=== PATIENT | female | born 1990 | race Caucasian/White ===

== ENCOUNTER 2019-03-09 10:26 | Inpatient (IN) | payer BC ==
[~2019-03-09] VITALS: Ht 165.1 cm; Wt 64.4 kg
[2019-03-09] MEDS ORDERED: QUET200T PO (11:07)
[2019-03-09] MEDS ORDERED: KETOROLAC 30 MG/ML VIAL IVP STA (11:11)
[2019-03-09] MEDS ORDERED: NS IV 1000 ML 1,000 ML IV ONE (11:11)
--- NOTE | 2019-03-09 11:27 | ED Abdominal Pain ---
General Chief Complaint: Abdominal/GI Problems Stated Complaint: ABD/BACK PAIN Nursing Triage Note: PT AMB TO TRIAGE WITH COMPLAINT OF RLQ PAIN THAT STARTED SATURDAY. STATES PAIN WAS CONTROLLED BY TYLENOL AND IBUPROFEN.STATES SATURDAY PAIN SPREAD TO SIDES AND BACK . STATES NOT CONTROLLED BY TYLENOL/IBUPROFEN. Sepsis Screen: No Definite Risk Source of Information: Patient Exam Limitations: No Limitations History of Present Illness Date Seen by Provider: Mar 09, 2019 Time Seen by Provider: 11:06 Initial Comments Here with report of right lower quadrant abdominal pain that started 3 days ago. She's tried to work through it but now it is worse and persistent. States that it hurts when she moves. She does have nausea and has had fever. Unable to control the pain with Tylenol and ibuprofen. Timing/Duration: 3-4 Days Severity/Quality: Moderate, Aching Location: RLQ Radiation: No Radiation Modifying Factors: Worsens With Movement; Improves With Resting Associated Symptoms: No Back Pain, No Chest Pain; Fever/Chills, Nausea/Vomiting; No Shortness of Air, No Swelling/Mass in Abdomen, No Weakness Allergies and Home Medications Allergies Coded Allergies: No Known Drug Allergies (Unverified , 03/09/19) Patient Home Medication List Home Medication List Reviewed: Yes Review of Systems Review of Systems Constitutional: see HPI EENTM: No Symptoms Reported Respiratory: Denies Cough, Denies Shortness of Air Cardiovascular: Denies Chest Pain, Denies Edema Gastrointestinal: See HPI, Abdominal Pain, Nausea Genitourinary: No Symptoms Reported Musculoskeletal: no symptoms reported Skin: no symptoms reported Psychiatric/Neurological: No Symptoms Reported All Other Systems Reviewed Negative Unless Noted: Yes Past Vrgniaf-Nipvmv-Tnfgns Hx Past Med/Social Hx: Reviewed Nursing Past Med/Soc Hx Patient Social History Alcohol Use: Denies Use Recreational Drug Use: No Smoking Status: Current Everyday Smoker Recent Foreign Travel: No Contact w/Someone Who Travel: No Recent Infectious Disease Expo: No Recent Hopitalizations: No Physical Abuse: No Sexual Abuse: No Mistreated: No Fear: No Immunizations Up To Date Tetanus Booster (TDap): Unknown PED Vaccines UTD: Yes Seasonal Allergies Seasonal Allergies: No Past Medical History Surgeries: Yes Tonsillectomy Respiratory: No Cardiac: No Neurological: No Genitourinary: No Gastrointestinal: No Musculoskeletal: No Endocrine: No HEENT: No Cancer: No Psychosocial: No Integumentary: No Blood Disorders: No Family Medical History Reviewed Nursing Family Hx Physical Exam Vital Signs Vital Signs - First Documented 03/09/19 10:57 Temp 98.4 Pulse 109 Resp 20 B/P (MAP) 131/71 (91) Pulse Ox 98 O2 Delivery Room Air Capillary Refill : Less Than 3 Seconds Height/Weight/BMI Height: 5'5.00" Weight: 130lbs. oz. 58.669996ns; BMI Method:Stated General Appearance: WD/WN, no apparent distress HEENT: PERRL/EOMI, pharynx normal Neck: full range of motion, supple Respiratory: lungs clear, normal breath sounds Cardiovascular: no murmur, tachycardia Peripheral Pulses: 2+ Dorsalis Pedis (R), 2+ Left Dors-Pedis (L), 2+ Radial Pulses (R), 2+ Radial Pulses (L) Gastrointestinal: soft; No guarding; rebound, tenderness (right lower quadrant and right upper quadrant) Extremities: non-tender, normal inspection Back: normal inspection, no CVA tenderness, no vertebral tenderness Neurologic/Psychiatric: alert, oriented x 3 Skin: normal color, warm/dry Progress/Results/Core Measures Results/Orders Lab Results Laboratory Tests Test 03/09/19 11:05 03/09/19 11:17 Range/Units Urine Color YELLOW Urine Clarity SLIGHTLY CLOUDY Urine pH 5 5-9 Urine Specific [place] 1.020 1.016-1.022 Urine Protein 2+ H NEGATIVE Urine Glucose (UA) 2+ H NEGATIVE Urine Ketones 1+ H NEGATIVE Urine Nitrite POSITIVE H NEGATIVE Urine Bilirubin NEGATIVE NEGATIVE Urine Urobilinogen NORMAL NORMAL MG/DL Urine Leukocyte Esterase 3+ H NEGATIVE Urine RBC (Auto) 4+ H NEGATIVE Urine RBC NONE /HPF Urine WBC 25-50 H /HPF Urine Squamous Epithelial Cells 10-25 H /HPF Urine Crystals NONE /LPF Urine Bacteria FEW H /HPF Urine Casts NONE /LPF Urine Mucus NEGATIVE /LPF Urine Culture Indicated YES White Blood Count 18.7 H 4.3-11.0 10^3/uL Red Blood Count 4.18 L 4.35-5.85 10^6/uL Hemoglobin 13.3 11.5-16.0 G/DL Hematocrit 39 35-52 % Mean Corpuscular Volume 94 80-99 FL Mean Corpuscular Hemoglobin 32 25-34 PG Mean Corpuscular Hemoglobin Concent 34 32-36 G/DL Red Cell Distribution Width 13.4 10.0-14.5 % Platelet Count 277 130-400 10^3/uL Mean Platelet Volume 10.7 H 7.4-10.4 FL Neutrophils (%) (Auto) 74 42-75 % Lymphocytes (%) (Auto) 11 L 12-44 % Monocytes (%) (Auto) 14 H 0-12 % Eosinophils (%) (Auto) 1 0-10 % Basophils (%) (Auto) 0 0-10 % Neutrophils # (Auto) 13.8 H 1.8-7.8 X 10^3 Lymphocytes # (Auto) 2.0 1.0-4.0 X 10^3 Monocytes # (Auto) 2.7 H 0.0-1.0 X 10^3 Eosinophils # (Auto) 0.2 0.0-0.3 10^3/uL Basophils # (Auto) 0.0 0.0-0.1 10^3/uL Neutrophils % (Manual) 70 % Lymphocytes % (Manual) 13 % Monocytes % (Manual) 10 % Eosinophils % (Manual) 1 % Band Neutrophils 6 % Blood Morphology Comment NORMAL Sodium Level 138 135-145 MMOL/L Potassium Level 3.4 L 3.6-5.0 MMOL/L Chloride Level 109 H 98-107 MMOL/L Carbon Dioxide Level 21 21-32 MMOL/L Anion Gap 8 5-14 MMOL/L Blood Urea Nitrogen 10 7-18 MG/DL Creatinine 0.75 0.60-1.30 MG/DL Estimat Glomerular Filtration Rate > 60 BUN/Creatinine Ratio 13 Glucose Level 103 70-105 MG/DL Calcium Level 8.9 8.5-10.1 MG/DL Corrected Calcium 9.2 8.5-10.1 MG/DL Total Bilirubin 0.4 0.1-1.0 MG/DL Aspartate Amino Transf (AST/SGOT) 12 5-34 U/L Alanine Aminotransferase (ALT/SGPT) 10 0-55 U/L Alkaline Phosphatase 78 40-136 U/L Total Protein 6.6 6.4-8.2 GM/DL Albumin 3.6 3.2-4.5 GM/DL My Orders Orders - LILIAM ADLER MD Cbc With Automated Diff (03/09/19 11:11) Comprehensive Metabolic Panel (03/09/19 11:11) Hs C Reactive Protein (03/09/19 11:11) Ua Culture If Indicated (03/09/19 11:11) Urine Bedside (03/09/19 11:11) Ed Iv/Invasive Line Start (03/09/19 11:11) Ns Iv 1000 Ml (Sodium Chloride 0.9%) (03/09/19 11:11) Ketorolac Injection (Toradol Injection) (03/09/19 11:11) Ct Abd/Pelv W (Appendicitis) (03/09/19 11:11) Iohexol Injection (Omnipaque 350 Mg/Ml 1 (03/09/19 11:30) Received Contrast (Hold Metformin- Contr (03/09/19 11:30) Ns (Ivpb) (Sodium Chloride 0.9% Ivpb Bag (03/09/19 11:30) Manual Differential (03/09/19 11:17) Urine Culture (03/09/19 11:05) Ceftriaxone For Iv Use (Rocephin For I (03/09/19 12:30) Lactic Acid Analyzer (03/09/19 12:27) Blood Culture (03/09/19 12:27) Medications Given in ED Current Medications Medications Dose Ordered Sig/Gilberto Route Start Time Stop Time Status Last Admin Dose Admin Iohexol 100 ml ONCE ONCE IV 03/09/19 11:30 03/09/19 11:31 DC 03/09/19 11:47 75 ML Sodium Chloride 100 ml ONCE ONCE IV 03/09/19 11:30 03/09/19 11:31 DC 03/09/19 11:47 80 ML Sodium Chloride 1,000 ml @ 0 mls/hr Q0M ONCE IV 03/09/19 11:11 03/09/19 11:13 DC 03/09/19 12:10 1,000 MLS/HR Vital Signs/I&O 03/09/19 10:57 Temp 98.4 Pulse 109 Resp 20 B/P (MAP) 131/71 (91) Pulse Ox 98 O2 Delivery Room Air Blood Pressure Mean: 91 Progress Progress Note : Progress Note Seen and evaluated. IV, labs, UA, UCG, normal saline 1 L bolus, Toradol [address] abdomen and pelvis appendicitis protocol ordered. Monitor patient. 1225: CT shows pyelonephritis and UA positive for urinary tract infection. Blood cultures and lactic acid ordered as well as Rocephin. Rocephin will be given after blood cultures drawn. Findings concerns discussed with the patient. Admission is indicated due to pyelonephritis. She agrees. Discussed with Dr. ORELLANA, on-call for [facility] and he accepts patient for admission, inpatient status. Diagnostic Imaging Diagonstic Imaging: CT Plain Films/CT/US/NM/MRI: abdomen, pelvis Comments [facility], [place] NAME: DARLINE ERNST [facility] REC#: [id number] PT STATUS: REG ER : 1990 PHYSICIAN: LILIAM ADLER MD ADMIT DATE: 03/09/19/ER Draft Date of Exam:03/09/19 CT ABD/PELV W (APPENDICITIS) PROCEDURE: CT abdomen and pelvis with contrast, rule out appendicitis. TECHNIQUE: Multiple contiguous axial images were obtained through the abdomen and pelvis after the administration of intravenous contrast. INDICATION: Pain. COMPARISON: None available. FINDINGS: Bilateral dependent atelectasis. The liver, spleen, adrenal glands, and pancreas are unremarkable. Gallbladder is unremarkable. Ill-defined hypodensities are identified associated with the right kidney, including within the superior and inferior pole. These appear to be associated with the cortex extending centrally. These do not demonstrate typical appearance of cyst. Minimal right perinephric fat stranding. The kidneys and ureters are otherwise unremarkable. No aneurysmal dilatation of abdominal aorta. The urinary bladder is decompressed, therefore, not well evaluated. Uterus and adnexal structures are unremarkable. The appendix is not definitely visualized, though there are no secondary signs of acute appendicitis. No bowel obstruction or pneumatosis. No significant adenopathy or free air within abdomen or pelvis. Trace free fluid within the lower pelvis. No acute osseous abnormality. IMPRESSION: Abnormal appearance of the right kidney most likely relates to an underlying infectious etiology such as pyelonephritis. Recommend correlation with urinary analysis. Underlying mass lesion is not totally excluded though felt less likely. Renal ultrasound is recommended one month after appropriate therapy to ensure there is no underlying solid mass lesion. The appendix is not definitely visualized, though no secondary signs of acute appendicitis are seen. Additional findings as above. Dictated on workstation # [id number] Dict: 03/09/19 1155 Trans: 03/09/19 1205 [id number] Interpreted by: HOMER ESCALANTE MD Electronically signed by: Reviewed: Reviewed by Me Departure Communication (Admissions) Time/Spoke to Admitting Phy: 12:25 Impression Primary Impression: Pyelonephritis Additional Impression: Urinary tract infection Qualified Codes: N30.00 - Acute cystitis without hematuria Disposition: ADMITTED INPATIENT Condition: Stable Admissions Decision to Admit Reason: Admit from ER (General) Decision to Admit/Date: Mar 09, 2019 Time/Decision to Admit Time: 12:25 Departure-Patient Inst. Referrals: NO,LOCAL PHYSICIAN (PCP/Family) Primary Care Physician LILIAM ADLER MD Mar 09, 2019 11:27
[2019-03-09] MEDS ORDERED: NS 100 ML (IVPB) BAG IV ONE (11:30)
[2019-03-09] MEDS ORDERED: IOHEXOL 350 MG/ML 100 ML (OMNIPAQUE 350) VIAL IV ONE (11:30)
[2019-03-09 11:31] LABS: BILIRUBIN,URINE NEGATIVE (NEGATIVE); CLARITY,URINE SLIGHTLY CLOUDY; COLOR,URINE YELLOW; GLUCOSE, URINE (UA) 2+ (NEGATIVE); KETONES,URINE 1+ (NEGATIVE); LEUKOCYTE ESTERASE ,URINE 3+ (NEGATIVE); NITRITE,URINE POSITIVE (NEGATIVE); PH,URINE 5 (5-9); PROTEIN,URINE 2+ (NEGATIVE); UROBILINOGEN,URINE NORMAL (NORMAL)
[2019-03-09 11:39] LABS: BASOPHILS % (AUTO) 0 % (0-10); EOSINOPHILS # (AUTO) 0.2 10^3/uL (0.0-0.3); EOSINOPHILS % (AUTO) 1 % (0-10); HEMATOCRIT 39 % (35-52); HEMOGLOBIN 13.3 G/DL (11.5-16.0); LYMPHOCYTES % (AUTO) 11 % (12-44); MEAN CORPUSCULAR HEMOGLOBIN 32 PG (25-34); MEAN CORPUSCULAR HGB CONC 34 G/DL (32-36); MEAN CORPUSCULAR VOLUME 94 FL (80-99); MEAN PLATELET VOLUME 10.7 FL (7.4-10.4); MONOCYTES # (AUTO) 2.7 X 10^3 (0.0-1.0); MONOCYTES % (AUTO) 14 % (0-12); NEUTROPHILS # (AUTO) 13.8 X 10^3 (1.8-7.8); NEUTROPHILS % (AUTO) 74 % (42-75); PLATELET COUNT 277 10^3/uL (130-400); RED CELL DISTRIBUTION WIDTH 13.4 % (10.0-14.5); WHITE BLOOD COUNT 18.7 10^3/uL (4.3-11.0)
[2019-03-09 11:43] LABS: BACTERIA,URINE FEW /HPF; WBC,URINE 25-50 /HPF
[2019-03-09] MEDS: HOLD METFORMIN - RECEIVED CONTRAST 20 ML VIAL IV SCH ×2 (11:48→14:45)
[2019-03-09 11:50] LABS: ALANINE AMINOTRANSFERASE 10 U/L (0-55); ALBUMIN 3.6 GM/DL (3.2-4.5); ALKALINE PHOSPHATASE 78 U/L (40-136); BILIRUBIN,TOTAL 0.4 MG/DL (0.1-1.0); BUN/CREATININE RATIO 13; CALCIUM 8.9 MG/DL (8.5-10.1); CARBON DIOXIDE 21 MMOL/L (21-32); CHLORIDE 109 MMOL/L (98-107); CREATININE SERUM 0.75 MG/DL (0.60-1.30); GFR ESTIMATED > 60; GLUCOSE 103 MG/DL (70-105); POTASSIUM 3.4 MMOL/L (3.6-5.0); SODIUM 138 MMOL/L (135-145); TOTAL PROTEIN 6.6 GM/DL (6.4-8.2)
--- NOTE | 2019-03-09 12:05 | Diagnostic Imaging Report ---
PROCEDURE: CT abdomen and pelvis with contrast, rule out appendicitis. TECHNIQUE: Multiple contiguous axial images were obtained through the abdomen and pelvis after the administration of intravenous contrast. INDICATION: Pain. COMPARISON: None available. FINDINGS: Bilateral dependent atelectasis. The liver, spleen, adrenal glands, and pancreas are unremarkable. Gallbladder is unremarkable. Ill-defined hypodensities are identified associated with the right kidney, including within the superior and inferior pole. These appear to be associated with the cortex extending centrally. These do not demonstrate typical appearance of cyst. Minimal right perinephric fat stranding. The kidneys and ureters are otherwise unremarkable. No aneurysmal dilatation of abdominal aorta. The urinary bladder is decompressed, therefore, not well evaluated. Uterus and adnexal structures are unremarkable. The appendix is not definitely visualized, though there are no secondary signs of acute appendicitis. No bowel obstruction or pneumatosis. No significant adenopathy or free air within abdomen or pelvis. Trace free fluid within the lower pelvis. No acute osseous abnormality. IMPRESSION: Abnormal appearance of the right kidney most likely relates to an underlying infectious etiology such as pyelonephritis. Recommend correlation with urinary analysis. Underlying mass lesion is not totally excluded though felt less likely. Renal ultrasound is recommended one month after appropriate therapy to ensure there is no underlying solid mass lesion. The appendix is not definitely visualized, though no secondary signs of acute appendicitis are seen. Additional findings as above. Dictated by: Dictated on workstation # [id number]
[2019-03-09 12:25] LABS: BAND NEUTROPHILS 6 %; EOSINOPHILS % (MANUAL) 1 %; LYMPHOCYTES % (MANUAL) 13 %; MONOCYTES % (MANUAL) 10 %; NEUTROPHILS % (MANUAL) 70 %; RBC MORPH NORMAL
[2019-03-09] MEDS ORDERED: cefTRIAXone FOR IV USE 1,000 MG in WATER (STERILE) FOR INJECTION 10 ML IV ONE (12:30)
[2019-03-09] MEDS ORDERED: cefTRIAXone 1,000 MG IV (ROCEPHIN) VIAL ONE (13:36)
[2019-03-09] MEDS ORDERED: WATER (STERILE) FOR INJECTION 10 ML ONE (13:36)
[2019-03-09 14:19] VITALS: BP 108/59
[2019-03-09] MEDS ORDERED: NS IV 1000 ML 1,000 ML ONE (14:25)
[2019-03-09 16:00] VITALS: BP 107/68
[2019-03-09] MEDS ORDERED: IBUPROFEN 600 MG (MOTRIN) TAB PO ONE (17:32)
[2019-03-09] MEDS ORDERED: IBUPROFEN 600 MG (MOTRIN) TAB PO SCH (17:45)
[2019-03-09] MEDS ORDERED: ONDANSETRON 4 MG/2 ML (SDV) Z0FRAN IVP PRN (17:45)
--- NOTE | 2019-03-09 19:50 | NUR ---
CALLED DR. DRISCOLL AND INFORMED HIM THAT PATIENT TAKES SEROQUEL 200MG HS AND WAS REQUESTING IT THIS EVENING. RECEIVED ORDER TO RESTART SEROQUEL. SEE EMAR FOR DETAILS
[2019-03-09 20:00] VITALS: BP 111/70
[2019-03-09] MEDS ORDERED: QUEtiapine 200 MG (SEROquel) TAB IMMEDIATE RELEASE PO SCH (21:00)
[2019-03-09] MEDS: IBUPROFEN 600 MG (MOTRIN) TAB PO SCH (21:30)
[2019-03-09] MEDS ORDERED: IBUPROFEN 600 MG (MOTRIN) TAB PO PRN (21:30)
[2019-03-09] MEDS: ACETAMINOPHEN 500 MG TAB (TYLENOL) PO PRN (21:42)
[2019-03-09] MEDS: NS IV 1000 ML 1,000 ML IV SCH (21:43)
[2019-03-10] VITALS: BP 90/72
[2019-03-10 04:00] VITALS: BP 99/58
[2019-03-10 05:23] LABS: BASOPHILS % (AUTO) 0 % (0-10); EOSINOPHILS # (AUTO) 0.2 10^3/uL (0.0-0.3); EOSINOPHILS % (AUTO) 1 % (0-10); HEMATOCRIT 36 % (35-52); HEMOGLOBIN 11.8 G/DL (11.5-16.0); LYMPHOCYTES # (AUTO) 2.9 X 10^3 (1.0-4.0); LYMPHOCYTES % (AUTO) 20 % (12-44); MEAN CORPUSCULAR HEMOGLOBIN 31 PG (25-34); MEAN CORPUSCULAR HGB CONC 33 G/DL (32-36); MEAN CORPUSCULAR VOLUME 96 FL (80-99); MONOCYTES # (AUTO) 2.1 X 10^3 (0.0-1.0); MONOCYTES % (AUTO) 14 % (0-12); NEUTROPHILS # (AUTO) 9.8 X 10^3 (1.8-7.8); NEUTROPHILS % (AUTO) 65 % (42-75); PLATELET COUNT 253 10^3/uL (130-400); RED CELL DISTRIBUTION WIDTH 13.5 % (10.0-14.5)
[2019-03-10 05:39] LABS: BUN/CREATININE RATIO 10; CALCIUM 8.1 MG/DL (8.5-10.1); CARBON DIOXIDE 19 MMOL/L (21-32); CHLORIDE 113 MMOL/L (98-107); CREATININE SERUM 0.63 MG/DL (0.60-1.30); GFR ESTIMATED > 60; GLUCOSE 101 MG/DL (70-105); SODIUM 140 MMOL/L (135-145)
[2019-03-10] MEDS: IBUPROFEN 600 MG (MOTRIN) TAB PO SCH ×2 (06:20→12:54)
[2019-03-10] MEDS: NS IV 1000 ML 1,000 ML IV SCH (06:20)
[2019-03-10 08:00] VITALS: BP 120/62
[2019-03-10] MEDS: ACETAMINOPHEN 500 MG TAB (TYLENOL) PO PRN (08:54)
[2019-03-10] MEDS ORDERED: NICOTINE 14 MG (NICODERM) PATCH TD SCH (09:00)
[2019-03-10] MEDS ORDERED: FOLI200T11 PO (10:04)
[2019-03-10] MEDS ORDERED: CETI1TAB61 PO (10:04)
[2019-03-10] MEDS ORDERED: ACET-93 PO (10:04)
[2019-03-10] MEDS ORDERED: IBUP-2055 PO (10:04)
--- NOTE | 2019-03-10 10:06 | NUR ---
SPOKE WITH PT WELL CALLING [facility] TO COMPLETE THE MED REC. OTC MEDS: ZYRTEC D: 1 DAILY ACETAMINOPHEN 500M TS Q 8 H PRN IBUPROFEN 200M TS Q 8 H PRN WOMENS 1 A DAY CHEWABLE: 1 DAILY
[2019-03-10 12:00] VITALS: BP 128/80
[2019-03-10] MEDS ORDERED: cefTRIAXone FOR IV USE 1,000 MG in WATER (STERILE) FOR INJECTION 10 ML IV ONE (12:30)
[2019-03-10] MEDS ORDERED: CIPR-225 PO (14:18)
--- NOTE | 2019-03-10 14:22 | Short Stay Summary ---
NILSON GUERRERO,MED STUDENT 03/10/19 1422: HPI History of Present Illness: 28 yo female presents with RLQ pain that radiates to the right lower back. The symptoms began 03/05/19 and continued to worsen over the weekend. 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 At that time she had RLQ pain, back pain, N/V, and fever. She states the N/V and fever have subsided and the RLQ pain is less than half of what it was yesterday at admission. She denies ever having urinary symptoms including dysuria, hesitancy, or polyuria. She has continued to eat and drink as normal. Source: patient Exam Limitations: no limitations Date seen by provider: Mar 10, 2019 Time Seen by Provider: 12:45 Attending Physician Kurtis Barton MD PCP [facility] Consult Date of Admission Mar 09, 2019 at 12:33 Home Medications Home Medications Reviewed patient Home Medication Reconciliation performed by pharmacy medication reconciliations technician preventative medicine and/or nursing. Patients Allergies have been reviewed. Allergies Coded Allergies: No Known Drug Allergies (Unverified , 03/09/19) YGT-Dwebmc-Rneyvy Hx Patient Social History Number of Children: 1 Employed/Student: employed (at [employer]) Alcohol Use: Denies Use Recreational Drug Use: No Smoking Status: Current Everyday Smoker Type Used: Cigarettes Recent Foreign Travel: No Contact w/other who traveled: No Recent Hopitalizations: No Recent Infectious Disease Expo: No Immunizations Up To Date Tetanus Booster (TDap): Unknown Past Medical History PMH is unremarkable other than vaginal delivery Family Medical History Family History: Patient reports no known family medical history. Review of Systems ([facility]) Constitutional: chills, fever Respiratory: No cough, No hemoptysis, No short of breath Cardiovascular: No chest pain, No syncope Gastrointestinal: abdominal pain (RLQ that radiates to right lower back) Genitourinary: No discharge, No dysuria, No frequency, No hematuria, No hesitancy Musculoskeletal: back pain Skin: No rash Reviewed Test Results Reviewed Test Results Lab Laboratory Tests 03/09/19 11:05: Urine Color YELLOW, Urine Clarity SLIGHTLY CLOUDY, Urine pH 5, Urine Specific [place] 1.020, Urine Protein 2+H, Urine Glucose (UA) 2+H, Urine Ketones 1+H, Urine Nitrite POSITIVEH, Urine Bilirubin NEGATIVE, Urine Urobilinogen NORMAL, Urine Leukocyte Esterase 3+H, Urine RBC (Auto) 4+H, Urine RBC NONE, Urine WBC 25-50H, Urine Squamous Epithelial Cells 10-25H, Urine Crystals NONE, Urine Bacteria FEWH, Urine Casts NONE, Urine Mucus NEGATIVE, Urine Culture Indicated YES 03/09/19 11:17: White Blood Count 18.7H, Red Blood Count 4.18L, Hemoglobin 13.3, Hematocrit 39, Mean Corpuscular Volume 94, Mean Corpuscular Hemoglobin 32, Mean Corpuscular Hemoglobin Concent 34, Red Cell Distribution Width 13.4, Platelet Count 277, Mean Platelet Volume 10.7H, Neutrophils (%) (Auto) 74, Lymphocytes (%) (Auto) 11L, Monocytes (%) (Auto) 14H, Eosinophils (%) (Auto) 1, Basophils (%) (Auto) 0, Neutrophils # (Auto) 13.8H, Lymphocytes # (Auto) 2.0, Monocytes # (Auto) 2.7H, Eosinophils # (Auto) 0.2, Basophils # (Auto) 0.0, Neutrophils % (Manual) 70, Lymphocytes % (Manual) 13, Monocytes % (Manual) 10, Eosinophils % (Manual) 1, Band Neutrophils 6, Blood Morphology Comment NORMAL, Sodium Level 138, Potassium Level 3.4L, Chloride Level 109H, Carbon Dioxide Level 21, Anion Gap 8, Blood Urea Nitrogen 10, Creatinine 0.75, Estimat Glomerular Filtration Rate > 60, BUN/Creatinine Ratio 13, Glucose Level 103, Calcium Level 8.9, Corrected Calcium 9.2, Total Bilirubin 0.4, Aspartate Amino Transf (AST/SGOT) 12, Alanine Am inotransferase (ALT/SGPT) 10, Alkaline Phosphatase 78, C-Reactive Protein High Sensitivity 27.41H, Total Protein 6.6, Albumin 3.6 03/09/19 12:34: Lactic Acid Level 0.44L 03/10/19 04:35: White Blood Count 15.0H, Red Blood Count 3.76L, Hemoglobin 11.8, Hematocrit 36, Mean Corpuscular Volume 96, Mean Corpuscular Hemoglobin 31, Mean Corpuscular He moglobin Concent 33, Red Cell Distribution Width 13.5, Platelet Count 253, Mean Platelet Volume 11.0H, Neutrophils (%) (Auto) 65, Lymphocytes (%) (Auto) 20, Monocytes (%) (Auto) 14H, Eosinophils (%) (Auto) 1, Basophils (%) (Auto) 0, Neutrophils # (Auto) 9.8H, Lymphocytes # (Auto) 2.9, Monocytes # (Auto) 2.1H, Eosinophils # (Auto) 0.2, Basophils # (Auto) 0.0, Sodium Level 140, Potassium Level 4.0, Chloride Level 113H, Carbon Dioxide Level 19L, Anion Gap 8, Blood Urea Nitrogen 6L, Creatinine 0.63, Estimat Glomerular Filtration Rate > 60, BUN/Creatinine Ratio 10, Glucose Level 101, Calcium Level 8.1L Microbiology 03/09/19 Urine Culture - Preliminary, Resulted Gram Negative [facility] Abnormal appearance of the right kidney most likely relates to an underlying infectious etiology such as pyelonephritis. Recommend correlation with urinary analysis. Underlying mass lesion is not totally excluded though felt less likely. Renal ultrasound is recommended one month after appropriate therapy to ensure there is no underlying solid mass lesion. Physical Exam-([facility]) Physical Exam Vital Signs VS - Last 72 Hours, by Label 03/09/19 03/09/19 03/09/19 03/09/19 10:57 14:05 14:19 15:28 Temp 98.4 98.1 Pulse 109 88 86 Resp 20 20 20 B/P (MAP) 131/71 (91) 112/67 (82) 108/59 Pulse Ox 98 98 95 95 O2 Delivery Room Air Room Air Room Air Room Air 03/09/19 03/09/19 03/09/19 03/10/19 16:00 20:00 20:00 00:00 Temp 99.1 98.8 99.3 Pulse 94 90 92 Resp 20 20 18 B/P (MAP) 107/68 (81) 111/70 (84) 90/72 (78) Pulse Ox 100 98 98 98 O2 Delivery Room Air Room Air Room Air Room Air 03/10/19 03/10/19 03/10/19 03/10/19 04:00 08:00 08:50 12:00 Temp 97.1 97.6 98.2 Pulse 84 89 76 Resp 16 20 20 B/P (MAP) 99/58 (72) 120/62 (81) 128/80 (96) Pulse Ox 97 98 98 O2 Delivery Room Air Room Air Room Air Room Air Capillary Refill : Less Than 3 SecondsLess Than 3 Seconds General Appearance: WD/WN, no apparent distress HEENT: PERRL/EOMI Respiratory: chest non-tender, lungs clear, normal breath sounds, no respiratory distress, no accessory muscle use Cardiovascular: regular rate, rhythm, no edema, no murmur Gastrointestinal: normal bowel sounds, soft, no organomegaly; No distended, No guarding, No rebound; tenderness (at RLQ) Back: no CVA tenderness Extremities: normal range of motion Neurologic/Psychiatric: alert, normal mood/affect, oriented x 3 Skin: normal color, warm/dry Short Stay Diagnosis Discharge Diagnosis-Short Stay Admission Diagnosis Pyelonephritis Final Discharge Diagnosis Pyleonephritis Conclusion Plan see assessment and plan Clinical Quality Measures DVT/VTE Risk/Contraindication: Risk Factor Score Per Nursin RFS Level Per Nursing on Admit: 2=Moderate Assessment/Plan Assessment/Plan Assessment & Plan Diagnosis of pyelonephritis. Discharge to home today. Take oral antibiotic as directed (ciprofloxacin). Advised patient to hold her seroquel while taking the antibiotic due to adverse effects. Follow-up with PCP on as scheduled. Discussed with patient the susceptibility results will not be available upon discharge and she will be called in the upcoming days to tell her to either co ntinue or switch antibiotic regimen. She verbalized understanding and is to call if worsening symptoms. Follow-up renal US in 1 month KURTIS BARTON MD 03/11/192057: Home Medications Allergies Coded Allergies: No Known Drug Allergies (Unverified , 03/09/19) MIY-Aoqkub-Abxeiu Hx Family Medical History Family History: Patient reports no known family medical history. Supervisory-Addendum Brief Verification & Attestation Participated in pt care: history, MDM, physical Personally performed: exam, history, MDM Care discussed with: Medical Student Procedures: n/a Verification and Attestation of Medical Student E/M Service A medical student performed and documented this service in my presence. I reviewed and verified all information documented by the medical student and made modifications to such information, when appropriate. I personally performed the physical exam and medical decision making. Kurtis Barton, Mar 11, 2019,20:58 NILSON GUERRERO MED STUDENT Mar 10, 2019 14:22 KURTIS BARTON MD Mar 11, 2019 20:58
== END 2019-03-10 15:05 | disposition home or self-care (01) | DRG 690 ==
LOC: EDUNIT# 10:26 → ER 10:27 → 4TH 12:33
PROVIDERS: ADMIT Internal Medicine; ATTEND Family Medicine
DX: N12 Tubulo-interstitial nephritis, not specified as acute or chronic (principal); F17.210 Nicotine dependence, cigarettes, uncomplicated
CPT/HCPCS: 36415; 74177; 80048; 80053; 81000; 83605; 84703; 85007; 85025; 85027; 86141; 87040; 87077; 87088; 87186; 96361; 96365; 96375

== ENCOUNTER 2019-10-04 13:26 | Emergency (ER) | payer BC ==
[~2019-10-04] VITALS: Ht 165 cm; Wt 58.9 kg
[~2019-10-04 13:26] MED LIST: ACET-93 PO; CETI1TAB61 PO; CIPR-225 PO; FOLI200T11 PO; IBUP-2473 PO; QUET200T PO
--- OUTSIDE RECORDS SUMMARY | 2019-10-04 13:32 | XMS REPORT | Continuity of Care Document ---
Author Organization Unknown Address Unknown Phone Unavailable Allergies Active Description Code Type Severity Reaction Onset Reported/Identified Relationship to Patient Clinical Status Yes No Known Drug Allergies [id number] Drug Allergy Unknown N/A 03/09/2019 Medications There is no data. Problems Date Dx Coded Attending Type Code Diagnosis Diagnosed By 03/10/2019 THANIA MORALES, KURTIS Pulliam Ot F17.210 NICOTINE DEPENDENCE, CIGARETTES, UNCOMPL 03/10/2019 THANIA MORALES, KURTIS Pulliam Ot N12 TUBULO-INTERSTITIAL NEPHRITIS, NOT SPCF Procedures There is no data. Results Test Result Range Complete urinalysis with reflex to cultu re - 03/09/19 11:05 Urine color determination YELLOW NRG Urine clarity determination SLIGHTLY CLOUDY NRG Urine pH measurement by test strip 5 5-9 Specific gravity of urine by test strip 1.020 1.016-1.022 Urine protein assay by test strip, semi-quantitative 2+ NEGATIVE Urine glucose detection by automated test strip 2+ NEGATIVE Erythrocytes detection in urine sediment by light micr oscopy 4+ NEGATIVE Urine ketones detection by automated test strip 1+ NEGATIVE Urine nitrite detection by test strip POSITIVE NEGATIVE Urine total bilirubin detection by test strip NEGA TIVE NEGATIVE Urine urobilinogen measurement by automated test strip (mass/volume) NORMAL NORMAL Urine leukocyte esterase detection by dipstick 3+ NEGATIVE Automated urine sediment erythrocyte cou nt by microscopy (number/high power field) NONE NRG Automated urine sediment leukocyte count by microscopy (number/high power field) [HPF] NRG Bacteria detection in urine sediment by light microsco py FEW NRG Squamous epithelial cells detection in u rine sediment by light microscopy 10-25 NRG Crystals detection in urine sediment by light microsco py NONE NRG Casts detection in urine sediment by light microscopy NONE NRG Mucus detection in urine sediment by light microscopy NEGATIVE NRG Complete urinalysis with reflex to culture YES NRG Bacterial urine culture - 03/09/19 11:05 Bacterial urine culture [id number] NRG COLONY COUNT >100,000/ML NRG FTX;REPORTABLE SUSCEPTIBILITY REPORTED 03/11/19 10:3 0 NRG Dirithromycin susceptibility test by dis k diffusion - 03/09/19 11:05 Gentamicin susceptibility test by minimum inhibitory c oncentration <= NRG Trimethoprim/sulfamethoxazole susceptibi lity test by minimum inhibitoryconcentration <= NRG Levofloxacin susceptibility test by minimum inhibitory concentration <= NRG Ampicillin susceptibility test by minimum inhibitory c oncentration > NRG Cefazolin susceptibility test by minimum inhibitory co ncentration 2 NRG Ceftriaxone susceptibility test by minimum inhibitory concentration <= NRG Ciprofloxacin susceptibility test by minimum inhibitor y concentration <= NRG Meropenem susceptibility test by minimum inhibitory co ncentration <= NRG Nitrofurantoin susceptibility test by mi nimum inhibitory concentration <= NRG Amoxicillin and clavulanate potassium susc CAITLYN = NRG Complete blood count (CBC) with automate d white blood cell (WBC) differential - 03/09/19 11:17 Blood leukocytes automated count (number/volume) 18.7 10*3/uL 4.3-11.0 Blood erythrocytes automated count (number/volume) 4.18 10*6/uL 4.35-5.85 Venous blood hemoglobin measurement (mass/volume) 13.3 g/dL 11.5-16.0 Blood hematocrit (volume fraction) 39 % 35-52 Automated erythrocyte mean corpuscular volume 94 [ foz_us] 80-99 Automated erythrocyte mean corpuscular h emoglobin (mass per erythrocyte) 32 pg 25-34 Automated erythrocyte mean corpuscular h emoglobin concentration measurement (mass/volume) 34 g/dL 32-36 Automated erythrocyte distribution width ratio 13. 4 % 10.0- 14.5 Automated blood platelet count (count/volume) 277 10*3/uL 130-400 Automated blood platelet mean volume measurement 10.7 [foz_us] 7.4-10.4 Automated blood neutrophils/100 leukocytes 74 % 42-75 Automated blood lymphocytes/100 leukocytes 11 % 12-44 Blood monocytes/100 leukocytes 14 % 0-12 Automated blood eosinophils/100 leukocytes 1 % 0-10 Automated blood basophils/100 leukocytes 0 % 0-10 Blood neutrophils automated count (number/volume) 13.8 10*3 1.8-7.8 Blood lymphocytes automated count (number/volume) 2.0 10*3 1.0-4.0 Blood monocytes automated count (number/volume) 2. 7 10*3 0.0-1.0 Automated eosinophil count 0.2 10*3/uL 0 .0-0.3 Automated blood basophil count (count/volume) 0.0 10*3/uL 0.0-0.1 Comprehensive metabolic panel - 03/09/19 11:17 Serum or plasma sodium measurement (moles/volume) 138 mmol/L 135-145 Serum or plasma potassium measurement (moles/volume) 3.4 mmol/L 3.6-5.0 Serum or plasma chloride measurement (moles/volume) 109 mmol/L 98-107 Carbon dioxide 21 mmol/L 21-32 Serum or plasma anion gap determination (moles/volume) 8 mmol/L 5-14 Serum or plasma urea nitrogen measurement (mass/volume ) 10 mg/dL 7-18 Serum or plasma creatinine measurement (mass/volume) 0.75 mg/dL 0.60-1.30 Serum or plasma urea nitrogen/creatinine mass ratio 13 NRG Serum or plasma creatinine measurement w ith calculation of estimated glomerular filtration rate > NRG Serum or plasma glucose measurement (mass/volume) 103 mg/dL 70-105 Serum or plasma calcium measurement (mass/volume) 8.9 mg/dL 8.5-10.1 Serum or plasma total bilirubin measurement (mass/volu me) 0.4 mg/dL 0.1-1.0 Serum or plasma alkaline phosphatase benjamin surement (enzymatic activity/volume) 78 U/L 40-136 Serum or plasma aspartate aminotransfera se measurement (enzymatic activity/volume) 12 U/L 5-34 Serum or plasma alanine aminotransferase measurement (enzymatic activity/volume) 10 U/L 0-55 Serum or plasma protein measurement (mass/volume) 6.6 g/dL 6.4-8.2 Serum or plasma albumin measurement (mass/volume) 3.6 g/dL 3.2-4.5 CALCIUM CORRECTED 9.2 mg/dL 8.5-10.1 Manual absolute plasma cell count - 08/26 11:17 Blood monocytes/100 leukocytes 10 % NRG Manual blood segmented neutrophils/100 leukocytes 70 % NRG Blood band neutrophils/100 leukocytes 6 % NRG Manual blood lymphocytes/100 leukocytes 13 % NRG Manual eosinophils/100 leukocytes in nose 1 % NRG Blood erythrocyte morphology finding identification NORMAL NRG Serum or plasma C reactive protein measu rement (mass/volume) - 03/09/19 11:17 Serum or plasma C reactive protein measurement (mass/v olume) 27.41 mg/dL 0.00-0.50 Blood lactic acid measurement (moles/vol ume) - 03/09/19 12:34 Blood lactic acid measurement (moles/volume) 0.44 mmol/L 0.50-2.00 Bacterial blood culture - 03/09/19 12:34 Bacterial blood culture NG NRG Bacterial blood culture - 03/09/19 12:47 Bacterial blood culture NG NRG Complete blood count (CBC) with automate d white blood cell (WBC) differential - 03/10/19 04:35 Blood leukocytes automated count (number/volume) 15.0 10*3/uL 4.3-11.0 Blood erythrocytes automated count (number/volume) 3.76 10*6/uL 4.35-5.85 Venous blood hemoglobin measurement (mass/volume) 11.8 g/dL 11.5-16.0 Blood hematocrit (volume fraction) 36 % 35-52 Automated erythrocyte mean corpuscular volume 96 [ foz_us] 80-99 Automated erythrocyte mean corpuscular h emoglobin (mass per erythrocyte) 31 pg 25-34 Automated erythrocyte mean corpuscular h emoglobin concentration measurement (mass/volume) 33 g/dL 32-36 Automated erythrocyte distribution width ratio 13. 5 % 10.0- 14.5 Automated blood platelet count (count/volume) 253 10*3/uL 130-400 Automated blood platelet mean volume measurement 11.0 [foz_us] 7.4-10.4 Automated blood neutrophils/100 leukocytes 65 % 42-75 Automated blood lymphocytes/100 leukocytes 20 % 12-44 Blood monocytes/100 leukocytes 14 % 0-12 Automated blood eosinophils/100 leukocytes 1 % 0-10 Automated blood basophils/100 leukocytes 0 % 0-10 Blood neutrophils automated count (number/volume) 9.8 10*3 1.8-7.8 Blood lymphocytes automated count (number/volume) 2.9 10*3 1.0-4.0 Blood monocytes automated count (number/volume) 2. 1 10*3 0.0-1.0 Automated eosinophil count 0.2 10*3/uL 0 .0-0.3 Automated blood basophil count (count/volume) 0.0 10*3/uL 0.0-0.1 Whole blood basic metabolic panel - 09/23 04:35 Serum or plasma sodium measurement (moles/volume) 140 mmol/L 135-145 Serum or plasma potassium measurement (moles/volume) 4.0 mmol/L 3.6-5.0 Serum or plasma chloride measurement (moles/volume) 113 mmol/L 98-107 Carbon dioxide 19 mmol/L 21-32 Serum or plasma anion gap determination (moles/volume) 8 mmol/L 5-14 Serum or plasma urea nitrogen measurement (mass/volume ) 6 mg/dL 7-18 Serum or plasma creatinine measurement (mass/volume) 0.63 mg/dL 0.60-1.30 Serum or plasma urea nitrogen/creatinine mass ratio 10 NRG Serum or plasma creatinine measurement w ith calculation of estimated glomerular filtration rate > NRG Serum or plasma glucose measurement (mass/volume) 101 mg/dL 70-105 Serum or plasma calcium measurement (mass/volume) 8.1 mg/dL 8.5-10.1 Encounters ACCT No. Visit Date/Time Discharge Status Pt. Type Provider Facility Loc./Unit Complaint [id number] 01/21/2019 08:20:00 01/21/2019 23:59: 59 CLS Outpatient DEEPTHI [facility]ABA [facility] [id number] 03/16/2019 13:00:00 23:59:59 CLS Preadmit JOANNE LORENZANA [facility] RAD ACUTE PYELONEPHRITIS [id number] 03/09/2019 12:33:00 15:05:00 DIS Inpatient THANIA MORALES, KURTIS Pulliam [facility] 4TH UTI,PYELONEPHRITIS
[2019-10-04 13:49] LABS: BILIRUBIN,URINE NEGATIVE (NEGATIVE); CLARITY,URINE SL CLOUDY; COLOR,URINE YELLOW; GLUCOSE, URINE (UA) NEGATIVE (NEGATIVE); KETONES,URINE TRACE (NEGATIVE); LEUKOCYTE ESTERASE ,URINE 2+ (NEGATIVE); NITRITE,URINE POSITIVE (NEGATIVE); PROTEIN,URINE 2+ (NEGATIVE)
[2019-10-04] MEDS ORDERED: ACETAMINOPHEN 500 MG TAB (TYLENOL) PO STA (13:49)
--- NOTE | 2019-10-04 13:49 | ED GU-Female ---
General Chief Complaint: - Urinary Stated Complaint: POSS KIDNEY INFECTION Source: patient Exam Limitations: no limitations History of Present Illness Date Seen by Provider: Oct 04, 2019 Time Seen by Provider: 13:46 Initial Comments 29-year-old female presents with right flank pain and right lower quadrant pain. Patient reports that she is "prone to kidney infections" that she's noticed symptoms for a couple days. That this is very similar to her last kidney infection. The last time she "septic" and wants to have it evaluated. She reports she has some nausea vomiting diarrhea is similar to her previous kidney infection. She denies any chills. She does not have a reported fever, cough, shortness of breath, chest pain or any other systemic complaints Allergies and Home Medications Allergies Coded Allergies: No Known Drug Allergies (Unverified , 03/09/19) Home Medications Acetaminophen 500 Mg Tablet, 1,000 MG PO Q8H PRN for PAIN-MILD, (Reported) Cephalexin 500 Mg Tablet, 500 MG PO QID Prescribed by: DINO MALIK on 10/04/19 1415 Cetirizine HCl/Pseudoephedrine 1 Each Tab.er.12h, 1 EACH PO DAILY, (Reported) Ciprofloxacin HCl 500 Mg Tablet, 500 MG PO BID Prescribed by: KURTIS MONTEIRO on 03/10/19 1418 Folic Acid/Multivit-Minerals 200 Mcg Tab.chew, 200 MCG PO DAILY, (Reported) Ibuprofen 200 Mg Tablet, 400 MG PO Q8H PRN for PAIN-MILD, (Reported) Quetiapine Fumarate 200 Mg Tablet, 200 MG PO HS, (Reported) Patient Home Medication List Home Medication List Reviewed: Yes Review of Systems Review of Systems Constitutional: No chills, No fever Respiratory: no symptoms reported Cardiovascular: no symptoms reported Gastrointestinal: see HPI, abdominal pain (RLQ), diarrhea, nausea, vomiting Genitourinary: dysuria, flank pain, pain Musculoskeletal: no symptoms reported Skin: no symptoms reported Psychiatric/Neurological: No Symptoms Reported Endocrine: No Symptoms Reported Past Spdysgk-Gvziwd-Tmzrlv Hx Past Med/Social Hx: Reviewed Nursing Past Med/Soc Hx Patient Social History Type Used: Cigarettes Recent Hopitalizations: No Immunizations Up To Date Tetanus Booster (TDap): Unknown PED Vaccines UTD: Yes Seasonal Allergies Seasonal Allergies: No Past Medical History Surgeries: Yes Tonsillectomy Respiratory: No Cardiac: No Neurological: No Genitourinary: No Gastrointestinal: No Musculoskeletal: No Endocrine: No HEENT: No Cancer: No Psychosocial: No Integumentary: No Blood Disorders: No Family Medical History Patient reports no known family medical history. Physical Exam Vital Signs Vital Signs - First Documented 10/04/19 13:44 Temp 38.8 Pulse 92 Resp 18 B/P (MAP) 135/78 (97) Pulse Ox 97 O2 Delivery Room Air Capillary Refill : Height, Weight, BMI Height: 5'5.00" Weight: 142lbs. 1.0oz. 64.306814ix; 23.6 BMI Method:Stated General Appearance: no apparent distress Neck: supple Cardiovascular: normal peripheral pulses, regular rate, rhythm, no edema Respiratory: chest non-tender, lungs clear, normal breath sounds, no respiratory distress Gastrointestinal: No distended, No guarding; tenderness (suprapubic, rlq) Back: CVA tenderness (R) Neurologic/Psychiatric: no motor/sensory deficits, alert, normal mood/affect, oriented x 3 Skin: normal color, warm/dry Progress/Results/Core Measures Suspected Sepsis SIRS Temperature: Pulse: Respiratory Rate: Blood Pressure / Mean: Results/Orders Lab Results Laboratory Tests Test 10/04/19 13:41 Range/Units Urine Color YELLOW Urine Clarity SL CLOUDY Urine pH 6.0 5-9 Urine Specific [place] 1.020 1.016-1.022 Urine Protein 2+ H NEGATIVE Urine Glucose (UA) NEGATIVE NEGATIVE Urine Ketones TRACE H NEGATIVE Urine Nitrite POSITIVE H NEGATIVE Urine Bilirubin NEGATIVE NEGATIVE Urine Urobilinogen 0.2 < = 1.0 MG/DL Urine Leukocyte Esterase 2+ H NEGATIVE Urine RBC (Auto) 2+ H NEGATIVE Urine RBC 5-10 H /HPF Urine WBC 50-100 H /HPF Urine Squamous Epithelial Cells 0-2 /HPF Urine Crystals NONE /LPF Urine Bacteria LARGE H /HPF Urine Casts NONE /LPF Urine Mucus NEGATIVE /LPF Urine Culture Indicated YES My Orders Orders - DINO MALIK DO Urine Bedside (10/04/19 13:43) Acetaminophen Tablet (Tylenol Tablet) (10/04/19 13:49) Ceftriaxone For Im Use (Rocephin For Im (10/04/19 14:15) Lidocaine 1% Inj 20 Ml (Xylocaine 1% Inj (10/04/19 14:15) Medications Given in ED Current Medications Medications Dose Ordered Sig/Gilberto Route Start Time Stop Time Status Last Admin Dose Admin Ceftriaxone Sodium 1,000 mg ONCE ONCE IM 10/04/19 14:15 10/04/19 14:16 DC 10/04/19 14:16 1,000 MG Lidocaine HCl 2.1 ml ONCE ONCE INJ 10/04/19 14:15 10/04/19 14:16 DC 10/04/19 14:16 2.1 ML Vital Signs/I&O 10/04/19 13:44 Temp 38.8 Pulse 92 Resp 18 B/P (MAP) 135/78 (97) Pulse Ox 97 O2 Delivery Room Air Capillary Refill : Departure Impression Primary Impression: Urinary tract infection Qualified Codes: N30.01 - Acute cystitis with hematuria Disposition: HOME, SELF-CARE Condition: Stable Departure-Patient Inst. Referrals: [facility][1[facility] [place] (PCP/Family) Primary Care Physician Patient Instructions: Urinary Tract Infection, Adult (DC) Add. Discharge Instructions: Emergency department focuses on treating and ruling out life-threatening diseases. Whenever possible, a diagnosis is given. However, most patients are given an impression based on their history, physical exam, and workup during your brief time in the ER. Information about probable diagnosis and other educational material has been provided. Please take the time to read and understand this information. It is very important that you follow up with a physician as discussed during the visit today. Failure to adhere to your follow-up instructions may lead to severe disability, injury, or so please make sure to keep your appointments or obtain one as requested. Please keep in mind the emergency department is not designed to your primary care or "family doctor" and nonurgent issues are best evaluated by an outpatient physician All discharge instructions reviewed with patient and/or family. Voiced understanding. Scripts Cephalexin (Cephalexin) 500 Mg Tablet 500 MG PO QID for 10 Days, #40 TAB 0 Refills Prov: DINO MALIK DO 10/04/19 Work/School Note: Work Release Form Date Seen in the Emergency Department: Oct 04, 2019 Return to Work: Oct 07, 2019 DINO MAILK DO Oct 04, 2019 13:49
[2019-10-04 13:58] LABS: BACTERIA,URINE LARGE /HPF; SQUAMOUS EPITHELIAL CELL,UR 0-2 /HPF; WBC,URINE 50-100 /HPF
[2019-10-04] MEDS ORDERED: CEPH500T PO (14:15)
[2019-10-04] MEDS ORDERED: LIDOCAINE 1% INJ 20 ML 20 ML VIAL INJ ONE (14:15)
[2019-10-04] MEDS ORDERED: cefTRIAXone 1,000 MG/2.86 ml vial (IM ONLY) IM ONE (14:15)
[2019-10-04 14:25] VITALS: BP 136/86
== END 2019-10-04 14:25 | disposition home or self-care (01) ==
LOC: EDUNIT# 13:26 → ER 13:28
DX: N30.01 Acute cystitis with hematuria (principal)
CPT/HCPCS: 81000; 84703; 87077; 87088; 87186; 99284